=== PATIENT | male | born 1960 | race Hispanic/Latino ===

== ENCOUNTER 2022-06-26 18:39 | Emergency (ER) | payer BC ==
[~2022-06-26] VITALS: Ht 172.7 cm; Wt 63.5 kg
[~2022-06-26 18:39] MED LIST: SODIUM CHLORIDE FLUSH 10 ML SYR IV PRN
[2022-06-26] MEDS ORDERED: FAMOTIDINE 20 MG/2 ML VIAL IV STA (19:14)
[2022-06-26] MEDS ORDERED: ONDANSETRON HCL INJ 2MG/ML 2ML 2 MG/ML VIAL IV STA (19:14)
[2022-06-26] MEDS ORDERED: SODIUM CHLORIDE 0.9% 1000ML 1,000 ML IV ONE (19:15)
[2022-06-26] MEDS ORDERED: Morphine 4mg INJECTION 4 MG/ML INJ IV ONE (19:15)
[2022-06-26 20:12] LABS: BASOPHILS # (AUTO) 0.1 (0.0-0.1); BASOPHILS % 0.4 % (0.0-1.0); EOSINOPHILS % 0.1 % (0.0-6.0); HEMATOCRIT 48.4 % (38.2-49.6); HEMOGLOBIN 15.1 g/dL (14.0-18.0); LYMPHOCYTES # (AUTO) 0.7 (1.0-3.2); LYMPHOCYTES % 5.5 % (18.0-39.1); MEAN CORPUSCULAR HEMOGLOBIN 24.8 pg (28-32); MEAN CORPUSCULAR HGB CONC 31.2 g/dL (31-35); MEAN CORPUSCULAR VOLUME 79.6 fL (81-99); MONOCYTES # (AUTO) 0.4 (0.2-0.8); MONOCYTES % 3.2 % (4.4-11.3); NEUTROPHILS # (AUTO) 10.9 (2.1-6.9); NEUTROPHILS % 90.4 % (38.7-80.0); PLATELET COUNT 340 x10e3/uL (140-360); RED BLOOD COUNT 6.08 x10e6/uL (4.3-5.7)
[2022-06-26 20:24] LABS: INR 1.02; PROTHROMBIN TIME 14.3 seconds (11.9-14.5)
[2022-06-26 20:25] LABS: PARTIAL THROMBOPLASTIN TIME 27.5 seconds (23.8-35.5)
[2022-06-26 20:33] LABS: ALANINE AMINOTRANSFERASE 24 IU/L (0-55); ALBUMIN 4.5 g/dL (3.5-5.0); ANION GAP 16.7 mmol/L (8-16); BLOOD UREA NITROGEN 19 mg/dL (7-26); BUN/CREATININE RATIO 23 (6-25); CALCIUM 10.2 mg/dL (8.4-10.2); CARBON DIOXIDE 29 mmol/L (22-29); CHLORIDE 99 mmol/L (98-107); CREATININE, SERUM 0.84 mg/dL (0.72-1.25); GLUCOSE 180 mg/dL (74-118); POTASSIUM 3.7 mmol/L (3.5-5.1); SODIUM 141 mmol/L (136-145)
[2022-06-26 20:34] LABS: ALBUMIN/GLOBULIN RATIO 1.3 (0.8-2.0); ALKALINE PHOSPHATASE 94 IU/L (40-150); LIPASE 32 U/L (8-78)
[2022-06-26 21:26] LABS: CLARITY,URINE CLEAR (CLEAR); COLOR,URINE YELLOW (YELLOW); KETONES,URINE TRACE (NEGATIVE); LEUKOCYTE ESTERASE ,URINE NEGATIVE (NEGATIVE); NITRITE,URINE NEGATIVE (NEGATIVE); PROTEIN,URINE DIPSTICK NEGATIVE (NEGATIVE); URINE UROBILINOGEN 0.2 mg/dL (0.2 - 1)
[2022-06-26 21:40] LABS: BACTERIA,URINE RARE /HPF; MUCUS,URINE FEW (RARE); WBC,URINE (MAN) 0-5 /HPF (0-5)
[2022-06-26 21:46] LABS: ANISOCYTOSIS MARKED
[2022-06-26 21:47] LABS: PLATELET ESTIMATE ADEQUATE; PLATELET MORPHOLOGY COMMENT NORMAL
[2022-06-26] MEDS ORDERED: IOPAMIDOL 370 MG/ML 100 ML INFUS..BTL INJ ONE (21:54)
[2022-06-26] MEDS ORDERED: DICYCLOMINE HCL20 MG PO (23:28)
[2022-06-26] MEDS ORDERED: ONDANSETRON ODT4 MG PO (23:28)
[2022-06-26 23:40] VITALS: BP 143/58
== END 2022-06-26 23:40 | disposition home or self-care (01) ==
LOC: ER 18:57
DX: R11.2 Nausea with vomiting, unspecified (principal); R10.33 Periumbilical pain; R73.9 Hyperglycemia, unspecified
CPT/HCPCS: 36415; 71045; 74177; 80053; 81001; 83690; 84484; 85025; 85610; 85730; 93005; 99284; J2270; J2405; J7030; Q9967